=== PATIENT | male | born 2000 | race Caucasian/White ===

== ENCOUNTER 2019-02-07 11:48 | Emergency (ER) | payer SELFPAY ==
[~2019-02-07] VITALS: Ht 170.2 cm; Wt 61.2 kg
[2019-02-07] MEDS: IBUPROFEN 600 MG TABLET. PO ONE (12:10)
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
--- NOTE | 2019-02-07 12:33 | RAD ---
LUMBAR SPINE 2-3V DATE: 02/07/2019 12:05 PM INDICATION: Low back pain with right lower extremity radiculopathy COMPARISON: None. FINDINGS: Five non-rib bearing lumbar-type vertebral bodies are present. Bones/Alignment: No evidence of acute compression fracture. There is no listhesis. Joints: There is no disc space loss. IMPRESSION: No evidence of acute compression fracture. Electronically signed by: Oliverio Westbrook MD (02/07/2019 12:30 PM) [facility]
[2019-02-07 13:15] VITALS: BP 114/75
[2019-02-07 13:33] LABS: BILIRUBIN,URINE NEG (NEG); CLARITY,URINE CLEAR; COLOR,URINE AMBER; GLUCOSE,URINE NEG (NEG)
[2019-02-07 13:34] LABS: BACTERIA,URINE 0 /HPF (0-FEW); NITRITE,URINE NEG (NEG); RBC,URINE RARE /HPF (0-2); SQUAMOUS EPITHELIAL CELL,UR OCC /LPF; UROBILINOGEN,URINE 0.2 mg/dL (0.2 mg/dL); WBC,URINE 0 /HPF (0-4)
[2019-02-07] MEDS ORDERED: CYCL-331 PO (13:36)
== END 2019-02-07 13:45 | disposition home or self-care (01) ==
LOC: ER 11:48
DX: S39.012A Strain of muscle, fascia and tendon of lower back, initial encounter (principal); M54.2 Cervicalgia; W51.XXXA Accidental striking against or bumped into by another person, initial encounter; Y93.89 Activity, other specified; Y92.89 Other specified places as the place of occurrence of the external cause; Y99.0 Civilian activity done for income or pay
CPT/HCPCS: 72100; 81001; 99285